=== PATIENT | female | born 1985 | race Caucasian/White ===

== ENCOUNTER 2017-04-10 19:08 | Emergency (ER) | payer OTHER ==
[~2017-04-10] VITALS: Ht 162.6 cm; Wt 52.2 kg
[2017-04-10 19:22] VITALS: BP 112/70
--- NOTE | 2017-04-10 20:01 | ED THROAT/DENTAL COMPLAINT ---
History of Present Illness General Chief Complaint: Sore Throat, Dental Pain Stated Complaint: TOOTH PAIN Source: patient Exam Limitations: no limitations Vital Signs & Intake/Output Vital Signs & Intake/Output Vital Signs Date Time Temp Pulse Resp B/P B/P Pulse O2 O2 Flow FiO2 Mean Ox Delivery Rate 04/10 1922 99.3 90 16 112/70 97 Room Air Allergies Coded Allergies: No Known Allergies (04/10/17) Reconcile Medications Amoxicillin 875 MG TABLET 1 TAB PO BID DENTAL IFNECTION Hydrocodone/Acetaminophen (Hydrocodon-Acetaminophen 5-325) 5 MG-325 MG TABLET 1-2 TAB PO Q4-6 PRN PRN PAIN Ibuprofen 800 MG TABLET 1 TAB PO TID PAIN Triage Note: PRESENTS TO ED FOR EVALUATION OF LEFT LOWER JAW PAIN SECONDARY TO DENTAL ISSUES. REPORTS FEVER AND CHILLS AT HOME. Triage Nurses Notes Reviewed? yes Onset: Abrupt Duration: week(s):, constant, getting worse Timing: recent history Injury Environment: home Severity: moderate, severe No Modifying Factors: none : No Patient currently breastfeeds: No HPI: 31-year-old female comes into the emergency room for further evaluation of right lower dental pain has been going on for the past month and a half but got worse over the past 3 days. Patient has a chipped tooth in the area. Sharp pain. Continuous. Aching throbbing. Nonradiating. Denies any fever but has some subjective chills. Denies any other associated symptoms. (ONI PRETTY) Past History Travel History Traveled to [place] past 21 day No Medical History Any Pertinent Medical History? none Surgical History Surgical History: none Psychosocial History What is your primary language Armenian Tobacco Use: Current Daily Use Daily Tobacco Use Amount/Type: => 5 Cigarettes daily Family History Hx Contributory? No (ONI PRETTY) Review of Systems Review of Systems Constitutional: Reports: no symptoms. EENTM: Reports: see HPI. Respiratory: Reports: no symptoms. Cardiovascular: Reports: no symptoms. GI: Reports: no symptoms. Genitourinary: Reports: no symptoms. Musculoskeletal: Reports: no symptoms. Skin: Reports: no symptoms. Neurological/Psychological: Reports: no symptoms. Hematologic/Endocrine: Reports: no symptoms. Immunologic/Allergic: Reports: no symptoms. All Other Systems: Reviewed and Negative (ONI PRETTY) Physical Exam Physical Exam General Appearance: well developed/nourished, no apparent distress, alert Head: atraumatic, normal appearance Eyes: Bilateral: normal appearance, EOMI. Nose: normal inspection Mouth/Throat: dental tenderness, Chipped right lower molar, no abscess appreciated,, mild swelling right lwoer gumline Neck: normal inspection Cardiovascular/Respiratory: regular rate/rhythm, no respiratory distress Back: normal inspection Neurologic/Psych: awake, alert, oriented x 3, normal gait, normal mood/affect Skin: intact, normal color Core Measures ACS in differential dx? No Severe Sepsis Present: No Septic Shock Present: No (ONI PRETTY) Progress Differential Diagnosis: aspirated tooth, carious tooth, epiglottitis, Ludwigs angina, meningitis, odontogenic abscess, ollie-tonsillar abscess, pharyngeal for. body, stomatitis/gingivitis, strep pharyngitis, tooth fracture Plan of Care: 04/10/2017 8:06:19 PM Follow-up with dentist. Return if any concerns. No evidence of abscess. Patient covered with antibiotics. (ONI PRETTY) Departure Departure Disposition: HOME OR SELF CARE Condition: Stable Clinical Impression Primary Impression: Chipped tooth Secondary Impressions: Dental infection Referrals: PATIENT HAS NO PRIMARY CARE DR (PCP/Family) Additional Instructions: Take ibuprofen amoxicillin and Vicodin as prescribed. Return if any concerns worsening symptoms. Follow follow-up with dentist. Please go over all results of today's visit with your primary care doctor. Contact your primary care doctor to let them know you were here in the emergency room. There may be nonspecific findings which may not be related to your visit today here in the emergency room but may require further evaluation and chronic monitoring by your primary care doctor. If you had a laceration today the chance of foreign body always remains. You should follow-up with your primary care doctor for recheck in 3-5 days for a wound check. If you had an x-ray done there is a chance that a fracture could have been missed on initial read and you should follow-up with your primary care doctor for repeat x-rays if symptoms persist. If your blood pressure was elevated here in the emergency room please have rechecked by her primary care doctor within the next 48 hours by your primary care doctor. If you were prescribed a narcotic here in the emergency room or any type of controlled substances you're not allowed to drive while taking this medication or operate any type of heavy machinery. Narcotics can make you feel lightheaded dizziness nausea and can cause constipation. You may need to berry picker a stool softener. Thank you for choosing [facility] emergency room. Please return to the emergency room immediately if you have any other concerns worsening of symptoms. Departure Forms: Customer Survey General Discharge Information Prescriptions: Current Visit Scripts Hydrocodone/Acetaminophen (Hydrocodon-Acetaminophen 5-325) 1-2 TAB PO Q4-6 PRN PRN PAIN #15 TAB Ibuprofen 1 TAB PO TID #20 TAB Amoxicillin 1 TAB PO BID #20 TAB (ONI PRETTY) PA/INSULATION WORKER APPRENTICE Co-Sign Statement Statement: ED Attending supervision documentation- [] I saw and evaluated the patient. I have also reviewed all the pertinent lab results and diagnostic results. I agree with the findings and the plan of care as documented in the PA's/INSULATION WORKER APPRENTICE's documentation. [x] I have reviewed the ED Record and agree with the PA's/INSULATION WORKER APPRENTICE's documentation. [] Additions or exceptions (if any) to the PAs/INSULATION WORKER APPRENTICE's note and plan are summarized below: [] (YENI APARICIO,LUCITA Landon)
[2017-04-10] MEDS ORDERED: HYDROCODON-ACE1 EAC2 PO (20:02)
[2017-04-10] MEDS ORDERED: IBUPROFEN800 M1 PO (20:02)
[2017-04-10] MEDS ORDERED: AMOXICILLIN875 M1 PO (20:02)
== END 2017-04-10 20:13 ==
LOC: ERH 19:08
DX: S02.5XXA Fracture of tooth (traumatic), initial encounter for closed fracture (principal); K04.7 Periapical abscess without sinus; X58.XXXA Exposure to other specified factors, initial encounter; Y92.9 Unspecified place or not applicable; Y93.9 Activity, unspecified

== ENCOUNTER 2017-04-11 05:54 | Emergency (ER) | payer OTHER ==
[~2017-04-11 05:54] MED LIST: AMOXICILLIN875 M1 PO; HYDROCODON-ACE1 EAC2 PO; IBUPROFEN800 M1 PO
[2017-04-11 05:58] VITALS: BP 124/75
--- NOTE | 2017-04-11 06:00 | ED GI/GU/ABDOMINAL COMPLAINT ---
History of Present Illness General Chief Complaint: Sore Throat, Dental Pain Stated Complaint: DENTAL PAIN Source: patient Exam Limitations: no limitations Vital Signs & Intake/Output Vital Signs & Intake/Output Vital Signs Date Time Temp Pulse Resp B/P B/P Pulse O2 O2 Flow FiO2 Mean Ox Delivery Rate 04/11 0603 Room Air 04/11 0558 95.7 86 18 124/75 98 Room Air Allergies Coded Allergies: No Known Allergies (04/10/17) Reconcile Medications Amoxicillin 875 MG TABLET 1 TAB PO BID DENTAL IFNECTION Hydrocodone/Acetaminophen (Hydrocodon-Acetaminophen 5-325) 5 MG-325 MG TABLET 1-2 TAB PO Q4-6 PRN PRN PAIN Ibuprofen 800 MG TABLET 1 TAB PO TID PAIN Triage Nurses Notes Reviewed? yes ? n Is pt currently ? No Onset: Gradual Duration: day(s): Timing: recent history Quality/Severity: throbbing Location: RIGHT UPPER AND LEFT UPPER DENTAL PAIN Radiation: no radiation Prior Abdominal Problems: similar symptoms Modifying Factors: Improves With: other (BETTER W/MEDS). Associated Symptoms: DENTAL PAIN HPI: 31 yo woman seen yesterday for dental pain, returns for continued pain. She notes, "I've been taking the antibiotics and the pain medications and it is not helping." She notes no fever, chills. She is able to drink and speak without problem. Past History Travel History Traveled to [place] past 21 day No Medical History Any Pertinent Medical History? see below for history Surgical History Surgical History: none Psychosocial History What is your primary language Spanish Family History Hx Contributory? No Review of Systems Review of Systems Constitutional: Reports: no symptoms. EENTM: Reports: no symptoms. Respiratory: Reports: no symptoms. Cardiovascular: Reports: no symptoms. GI: Reports: no symptoms. Genitourinary: Reports: no symptoms. Musculoskeletal: Reports: no symptoms. Skin: Reports: no symptoms. Neurological/Psychological: Reports: no symptoms. Hematologic/Endocrine: Reports: no symptoms. Immunologic/Allergic: Reports: no symptoms. All Other Systems: Reviewed and Negative Physical Exam Physical Exam General Appearance: well developed/nourished, moderate distress Head: atraumatic, normal appearance Eyes: Bilateral: normal appearance. Ears, Nose, Throat, Mouth: hearing grossly normal, poor dentition, erythema in right lower jaw and left upper jaw, no aristeo abscess. Neck: normal inspection, supple, full range of motion Gastrointestinal: normal bowel sounds Core Measures ACS in differential dx? No Severe Sepsis Present: No Septic Shock Present: No Progress Differential Diagnosis: dental abscess/toothache Plan of Care: with patient consent, dental block to right lower and left upper teeth with moderate effect. Initial ED EKG: none Departure Departure Disposition: HOME OR SELF CARE Condition: Stable Clinical Impression Primary Impression: Toothache Secondary Impressions: Dental infection Referrals: PATIENT HAS NO PRIMARY CARE DR (PCP/Family) Departure Forms: Customer Survey General Discharge Information
== END 2017-04-11 06:20 ==
LOC: ERH 05:54
DX: K08.89 Other specified disorders of teeth and supporting structures (principal); K04.7 Periapical abscess without sinus

== ENCOUNTER 2017-12-05 02:45 | Emergency (ER) | payer SELFPAY ==
--- NOTE | 2017-12-05 03:06 | ED DYSPNEA/ASTHMA COMPLAINT ---
History of Present Illness General Chief Complaint: Dyspnea (COPD, CHF, Other) Stated Complaint: DIFF BREATHING Allergies Coded Allergies: No Known Allergies (04/10/17) Reconcile Medications Amoxicillin 875 MG TABLET 1 TAB PO BID DENTAL IFNECTION Hydrocodone/Acetaminophen (Hydrocodon-Acetaminophen 5-325) 5 MG-325 MG TABLET 1-2 TAB PO Q4-6 PRN PRN PAIN Ibuprofen 800 MG TABLET 1 TAB PO TID PAIN Triage Nurses Notes Reviewed? yes Past History Travel History Traveled to [place] past 21 day No Medical History Neurological: NONE EENT: NONE Cardiovascular: NONE Respiratory: NONE Gastrointestinal: NONE Hepatic: NONE Renal: NONE Musculoskeletal: NONE Psychiatric: NONE Endocrine: NONE Blood Disorders: NONE Cancer(s): NONE COMPUTER PROJECT MANAGER/Reproductive: NONE Surgical History Surgical History: none Psychosocial History What is your primary language French Review of Systems Review of Systems Constitutional: Reports: no symptoms. EENTM: Reports: no symptoms. Respiratory: Reports: no symptoms. Cardiovascular: Reports: no symptoms. GI: Reports: no symptoms. Genitourinary: Reports: no symptoms. Musculoskeletal: Reports: no symptoms. Skin: Reports: no symptoms. Neurological/Psychological: Reports: no symptoms. Hematologic/Endocrine: Reports: no symptoms. Immunologic/Allergic: Reports: no symptoms. All Other Systems: Reviewed and Negative Departure Departure Condition: Stable Referrals: Patient Has No Primary Care Dr (PCP/Family) Departure Forms: Customer Survey General Discharge Information
== END 2017-12-05 03:33 | disposition admitted as inpatient to this hospital (09) ==
LOC: ERH 02:45
DX: R09.89 Other specified symptoms and signs involving the circulatory and respiratory systems (principal)